=== PATIENT | female | born 1985 | race African-American/Black ===

== ENCOUNTER 2019-10-06 15:11 | Emergency (ER) | payer MEDICAID ==
[~2019-10-06] VITALS: Ht 172.7 cm; Wt 105.2 kg
[2019-10-06 15:42] VITALS: Ht 172.7 cm; Wt 105.2 kg
[2019-10-06 16:21] LABS: BASOPHIL % 0.6 % (0-2); PLATELET COUNT 347 x10^3mcL (130-400); RED CELL DISTRIBUTION WIDTH 14.5 % (11.5-14.5)
[2019-10-06 17:07] VITALS: BP 115/93
== END 2019-10-06 17:07 | disposition home or self-care (01) ==
LOC: ED 15:11
DX: N92.1 Excessive and frequent menstruation with irregular cycle (principal); Z32.02 Encounter for pregnancy test, result negative